=== PATIENT | female | born 1995 | race Caucasian/White ===

== ENCOUNTER 2019-07-15 07:48 | Day surgery (SDC) | payer OTHER ==
[~2019-07-15] VITALS: Ht 154.9 cm; Wt 59.0 kg
[2019-07-15 08:03] VITALS: BP 118/65
[2019-07-15] MEDS ORDERED: SODIUM CHLORIDE 0.9% 1,000 ML IV SCH (08:04)
[2019-07-15] MEDS ORDERED: ESCI10TA10 PO (08:31)
[2019-07-15] MEDS ORDERED: FENTANYL PF 100 MCG/2ML ONE (12:00)
[2019-07-15] MEDS ORDERED: MIDAZOLAM 1 MG/ML, 2ML ONE (12:00)
[2019-07-15] MEDS ORDERED: LIDOCAINE 1%, 20ML ONE (12:01)
[2019-07-15] MEDS ORDERED: ISOPROTERENOL 0.2MG/ML, 5ML ONE (12:01)
[2019-07-15] MEDS ORDERED: ONDANSETRON 2MG/ML, 2ML ONE (13:17)
[2019-07-15] MEDS ORDERED: ACETAMINOPHEN 325 MG TABLET ONE (14:36)
[2019-07-15] MEDS ORDERED: ACETAMINOPHEN 325 MG TABLET PO ONE (15:00)
[2019-07-16] MEDS ORDERED: ESCITALOPRAM 10MG TABLET PO SCH (09:00)
== END 2019-07-15 17:30 | disposition home or self-care (01) ==
LOC: CACL 07:48
PROVIDERS: ATTEND Internal Medicine Cardiovascular Disease
DX: R00.2 Palpitations (principal); R55 Syncope and collapse; I47.1 Supraventricular tachycardia; Z79.899 Other long term (current) drug therapy; Z88.0 Allergy status to penicillin
CPT/HCPCS: 36415; 84702; 93613; 93620; 93623; 99156; 99157; C1730; C1894; C2630; J2250; J2405; J3010